=== PATIENT | female | born 1950 | race Caucasian/White ===

== ENCOUNTER → 2017-01-26 | Outpatient (CLI) | payer BC ==
[~2017-01-26] MED LIST: BND25 PO; DVN80125 PO; LEVO50TA6 PO; METH1TAB66 PO; MISCCAP80 PO; MULT-506 PO; OMEG10007 PO; POTASSIUM PO; RIZA10TA18 PO; SENNTAB23 PO; VERA120T15 PO
[2017-01-26 09:43] LABS: BASO ABS # 0.11 K/uL (0-0.2); COMPLETE YES; EOS % 6.1 %; HEMATOCRIT 36.4 % (37-47); LYMPH % 35.8 %; MEAN CELL VOLUME 81.3 fL (80-100); MEAN CORPUSCULAR HEMOGLOBIN 27.5 pg (25-34); MEAN CORPUSCULAR HGB CONC 33.8 g/dl (32-36); MEAN PLATELET VOLUME 9.4 fL (7.4-10.4); MONO % 8.8 %; NEUT % 47.3 %; PLATELET COUNT 287 K/uL (130-400); RED BLOOD COUNT 4.48 M/uL (4.2-5.4); WHITE BLOOD COUNT 5.58 K/uL (4.8-10.8)
[2017-01-26 09:57] LABS: ALT/SGPT 24 U/L (12-78); BLOOD UREA NITROGEN 16 mg/dl (7-18); BUN/CREATININE RATIO 14.4 (10-20); CALCIUM 9.2 mg/dl (8.5-10.1); CARBON DIOXIDE 24 mmol/L (21-32); CHLORIDE 106 mmol/L (98-107); CHOLESTEROL 223 mg/dl (0-200); GLUCOSE 92 mg/dl (70-99); POTASSIUM 3.6 mmol/L (3.5-5.1); SODIUM 141 mmol/L (136-145); TRIGLYCERIDES 87 mg/dl (0-150); VERY LOW DENSITY LIPOPROT CALC 17 mg/dl
[2017-01-26 10:19] LABS: ALKALINE PHOSPHATASE 78 U/L (45-117); AST/SGOT 24 U/L (15-37); CHOLESTEROL/HDL RATIO 3.1; HDL CHOLESTEROL 71 mg/dl; LDL CHOLESTEROL CALCULATED 135 mg/dl
== END | disposition home or self-care (01) ==
LOC: C.LAB 06:58
PROVIDERS: ATTEND Nurse Practitioner Family
DX: Z11.59 Encounter for screening for other viral diseases (principal); I10 Essential (primary) hypertension; M81.0 Age-related osteoporosis without current pathological fracture; Z13.220 Encounter for screening for lipoid disorders; E03.9 Hypothyroidism, unspecified

== ENCOUNTER → 2017-05-22 | Outpatient (CLI) | payer BC ==
--- NOTE | 2017-05-22 12:12 | DIAGNOSTIC IMAGING REPORT ---
LEFT ANKLE MIN 3 VIEWS ROUTINE CLINICAL HISTORY: M25.572 Left ankle [id number] trauma. Pain. COMPARISON: None. DISCUSSION: Oblique fracture distal fibula. No evidence for disruption of the ankle mortise. Localized soft tissue edema. Subtalar joint is intact. IMPRESSION: Oblique fracture distal fibula. Soft tissue edema. Electronically signed by: Arthur Palacio M.D. 05/22/2017 12:11 PM Dictated Date/Time: 05/22/2017 12:10 PM
--- NOTE | 2017-05-22 12:13 | DIAGNOSTIC IMAGING REPORT ---
LEFT KNEE 2 VIEWS CLINICAL HISTORY: Left knee pain. FINDINGS: AP and lateral views of left knee are obtained. No prior studies are available for comparison at the time of dictation. The skeletal structures are osteopenic. No fracture is seen. There is advanced degenerative narrowing at the patellofemoral articulation. Mild to moderate narrowing is seen in the medial and lateral compartments, greatest medially. There are tiny marginal osteophytes, degenerative beaking of the tibial spine, and patellar enthesophytes. A calcified fabella is incidentally noted. There is no significant joint effusion. The overlying soft tissues are within normal limits. IMPRESSION: 1. No acute bony abnormality is seen in the left knee. 2. Osteopenia and arthritic change as above. Electronically signed by: Tony Mancini M.D. 05/22/2017 12:12 PM Dictated Date/Time: 05/22/2017 12:09 PM
== END | disposition home or self-care (01) ==
LOC: C.RAD1850 11:56
PROVIDERS: ATTEND Nurse Practitioner Family
DX: M25.562 Pain in left knee (principal); S82.432A Displaced oblique fracture of shaft of left fibula, initial encounter for closed fracture; X58.XXXA Exposure to other specified factors, initial encounter; M85.862 Other specified disorders of bone density and structure, left lower leg

== ENCOUNTER → 2017-05-31 | Outpatient (CLI) | payer BC ==
--- NOTE | 2017-05-31 13:38 | DIAGNOSTIC IMAGING REPORT ---
LEFT LOWER EXTREMITY WITHOUT HISTORY:66 yearsFemale[age]KLE PAIN. Recent fracture of the distal left fibula. COMPARISON: Left knee and ankle radiographs 05/22/2017 TECHNIQUE: Multiple axial CT images of the left lower extremity were obtained without IV contrast. 3-D reformatted images were obtained from a separate workstation and were submitted for review. FINDINGS: There is a cast present involving the left lower extremity. Slightly comminuted obliquely oriented fracture of the distal fibula is noted extending to the level of the ankle mortise best seen on the coronal images with fracture line extending into the distal syndesmosis. There is approximately 3 mm of volar displacement as seen on image 39 of the axial series. No significant healing callus formation is seen. There are punctate fracture fragments seen within the lateral aspect of the tibiotalar joint. Note is made of a small os trigonum. There is moderate spurring of the calcaneus at the plantar insertion site. There is distal fibular spurring at the expected location of the anterior talofibular ligament insertion site. Midfoot alignment is anatomic. Note is made of a type I accessory navicular. The distal tibia and talus appear intact. No additional acute fracture or dislocation is identified. There is thickening of the peroneal brevis tendon seen along the posterior malleolar and inferomalleolar course as seen on axial images 39 through 49 suggesting tendinosis with possible split tear. There is moderate soft tissue swelling about the lower leg. IMPRESSION: 1. Mildly comminuted only minimally displaced obliquely oriented fracture of the distal fibula extends to the level of the tibial plafond. Punctate fracture fragments are present within the tibiotalar joint laterally. No significant healing callus formation yet identified. 2. Moderate soft tissue swelling about the lower leg. 3. No additional acute fracture or dislocation. 4. Thickening of the peroneal brevis tendon along the posterior malleolar and inferomalleolar course suggests tendinosis with possible split tear. The above report was generated using voice recognition software. It may contain grammatical, syntax or spelling errors. Electronically signed by: Daniel Franco M.D. 05/31/2017 1:37 PM Dictated Date/Time: 05/31/2017 1:26 PM
== END | disposition home or self-care (01) ==
LOC: C.CTS 12:50
PROVIDERS: ATTEND Orthopaedic Surgery Sports Medicine
DX: M25.572 Pain in left ankle and joints of left foot (principal); S82.832D Other fracture of upper and lower end of left fibula, subsequent encounter for closed fracture with routine healing; X58.XXXD Exposure to other specified factors, subsequent encounter

== ENCOUNTER → 2017-11-02 | Outpatient (CLI) | payer BC ==
[~2017-11-02] MED LIST changes: -BND25 PO; +DIPH25CA5 PO
== END | disposition home or self-care (01) ==
LOC: C.MAMM 10:44
PROVIDERS: ATTEND Nurse Practitioner Family
DX: M81.0 Age-related osteoporosis without current pathological fracture (principal)